=== PATIENT | male | born 1940 | race Caucasian/White ===

== ENCOUNTER 2021-07-17 05:17 | Day surgery (SDC) | payer MEDICARE, BC ==
[2021-07-06 15:53] LABS: BASOPHILS # (AUTO) 0.1 X10'3 (0-0.2); BASOPHILS % (AUTO) 0.8 % (0-1); EOSINOPHILS # (AUTO) 0.4 X10'3 (0-0.9); EOSINOPHILS % (AUTO) 5.3 % (0-6); LYMPHOCYTES # (AUTO) 1.4 X10'3 (1.1-4.8); LYMPHOCYTES % (AUTO) 21.5 % (21-51); MEAN CORPUSCULAR HEMOGLOBIN 30.9 PG (27.0-31.0); MEAN CORPUSCULAR HGB CONC 33.8 g/dL (33.0-36.5); MEAN CORPUSCULAR VOLUME 91.4 FL (78-98); MEAN PLATELET VOLUME 8.6 FL (7.4-10.4); MONOCYTES # (AUTO) 0.5 X10'3 (0-0.9); MONOCYTES % (AUTO) 8.1 % (2-12); NEUTROPHILS # (AUTO) 4.2 X10'3 (1.8-7.7); NEUTROPHILS % (AUTO) 64.3 % (42-75); PRE OP HEMATOCRIT 45.3 % (42.0-52.0); PRE OP HEMOGLOBIN 15.3 g/dL (14.0-17.9); PRE OP PLATELET COUNT 214 X10'3 (140-440); RED BLOOD COUNT 4.96 X10'6 (4.70-6.10); RED CELL DISTRIBUTION WIDTH 13.9 % (11.5-14.5)
[2021-07-06 15:55] LABS: CLARITY,URINE CLEAR (Clear); COLOR,URINE YELLOW (Yellow); GLUCOSE, URINE NEGATIVE (Neg); KETONES,URINE NEGATIVE (Neg); LEUKOCYTE ESTERASE ,URINE NEGATIVE (Neg); NITRITES, URINE NEGATIVE (Neg); OCCULT BLOOD,URINE NEGATIVE (Neg); PH,URINE 6.5 (4.8-8.0); PROTEIN,URINE NEGATIVE (Neg); UROBILINOGEN,URINE 0.2 E.U/dL (0.2-1.0)
[2021-07-06 16:06] LABS: ALBUMIN 3.5 G/DL (3.4-5.0); ALBUMIN/GLOBULIN RATIO 0.9 (1.1-1.5); ALKALINE PHOSPHATASE 74 IU/L (46-116); BLOOD UREA NITROGEN 25 MG/DL (7-18); BUN/CREATININE RATIO 22.9 (5.4-32.0); CALCIUM 8.9 MG/DL (8.5-10.1); CHLORIDE 108 MMOL/L (99-107); CREATININE 1.09 MG/DL (0.60-1.10); PRE OP ALT 22 U/L (30-65); PRE OP ANION GAP 7 (8-16); PRE OP AST 15 U/L (10-37); PRE OP BILIRUB, TOTAL 0.3 MG/DL (0.0-1.0); PRE OP GLUCOSE 118 MG/DL (70-104); PRE OP POTASSIUM 4.3 MMOL/L (3.4-5.1); PRE OP SODIUM 143 MMOL/L (135-145); TOTAL CARBON DIOXIDE 27.9 MMOL/L (24-32); TOTAL PROTEIN 7.2 G/DL (6.4-8.2); eGFR 65 ML/MIN
[2021-07-06 16:09] LABS: UA COLLECTION TYPE CLN CATCH MIDSTREAM
[2021-07-17] VITALS (13 sets, daily range): BP systolic 116–133; BP diastolic 57–78
[~2021-07-17] VITALS: Ht 182.9 cm; Wt 88.0 kg
[~2021-07-17 05:17] MED LIST: AMLO5TAB4 PO; ATOR10TA70 PO; CHOL200012 PO; LOSA50TA3 PO; MULT-1085 PO; OMEG-31 PO; TEST5GEL2 TP; TUMERIC PO; UBID200C37 PO; ringers solution, lacted 1,000 ML IV SCH
[2021-07-17] MEDS ORDERED: famotidine 20mg tablet PO ONE (05:30)
[2021-07-17] MEDS ORDERED: cefazolin/dext.iso 2gm/50ml IV ONE (05:30)
[2021-07-17] MEDS ORDERED: sevoflurane 250ml liquid IH ONE (06:00)
[2021-07-17] MEDS ORDERED: bacitracin 15gm ointment TP ONE (06:40)
[2021-07-17] MEDS ORDERED: midazolam 1 mg/ML 2ml injection ONE (07:11)
[2021-07-17] MEDS ORDERED: fentaNYL /PF 50mcg/ml 5ml ampule ONE (07:16)
[2021-07-17] MEDS ORDERED: ringers solution, lacted 1,000 ML IV SCH (08:25)
[2021-07-17] MEDS ORDERED: HYDROmorphone/PF 0.2 MG/ML SYRINGE IV PRN (08:25)
[2021-07-17] MEDS ORDERED: ROPIVAcaine 0.2%/PF PUMP/bolus 545 ML POPLITEAL SCH (08:25)
[2021-07-17] MEDS ORDERED: ROPIVAcaine 0.2% (10 MG/5 ML) BOLUS INJECTION POPLITEAL PRN (08:25)
[2021-07-17] MEDS ORDERED: morphine 2 MG/ML inj. syringe IV PRN (08:25)
[2021-07-17] MEDS ORDERED: ondansetron/PF 4mg/2ml inj IV PRN (08:25)
--- NOTE | 2021-07-17 09:25 | NUR ---
Received from OR via , accompanied by Anesthesiologist DR RUBIO and report given by Anesthesiolgist. PT PRESENTS WITH 18G LEFT WRIST, RIGHT LEG DRESSING DRY AND INTACT, VSS Addendum: 07/17/21 at 0938 by Dianne Sampson RN, RN Amended: Links added.
[2021-07-17] MEDS ORDERED: neostigmine methylsulfate 1 MG/ML 10ml vial ONE (10:08)
[2021-07-17] MEDS ORDERED: rocuronium 10mg/ml inj IV ONE (10:08)
[2021-07-17] MEDS ORDERED: glycopyrrolate 0.2mg/ml inj ONE (10:08)
[2021-07-17] MEDS ORDERED: dexamethasone sod phosphate 4mg/ml inj. ONE (10:08)
[2021-07-17] MEDS ORDERED: propofol inj 20 ML IV ONE (10:08)
[2021-07-17] MEDS ORDERED: ROPIVAcaine 0.5% (5mg/ml) 30ml vial ONE (10:08)
[2021-07-17] MEDS ORDERED: LIDOcaine 2% (20mg/ml) 5ml vial ONE (10:08)
[2021-07-17] MEDS ORDERED: ondansetron/PF 4mg/2ml inj ONE (10:08)
--- NOTE | 2021-07-17 11:36 | NUR ---
ALL DISCHARGE CRITERIA HAS BEEN MET. VSS, PAIN AT A TOLERABLE LEVEL, VOIDING AND ABLE TO SAFELY AMBULATE AND TRANSFER SELF. IV TAKEN OUT WITHOUT ANY COMPLICATIONS. ALL DISCHARGE INSTRUCTIONS COVERED WITH PATIENT AND ALL QUESTIONS ANSWERED. PATIENT TAKEN OUT VIA WHEELCHAIR TO PERSONAL VEHICLE WHERE FAMILY/FRIEND DROVE PATIENT HOME. Addendum: 07/17/21 at 1136 by Dianne Sampson RN, RN Amended: Links added.
== END 2021-07-17 11:25 | disposition home or self-care (01) ==
LOC: PAS 05:17
PROVIDERS: ATTEND Podiatrist Foot & Ankle Surgery
DX: M25.572 Pain in left ankle and joints of left foot (principal); M25.372 Other instability, left ankle; M65.872 Other synovitis and tenosynovitis, left ankle and foot; S96.812A Strain of other specified muscles and tendons at ankle and foot level, left foot, initial encounter; I10 Essential (primary) hypertension; K21.9 Gastro-esophageal reflux disease without esophagitis; G89.18 Other acute postprocedural pain; Z79.899 Other long term (current) drug therapy; Z95.0 Presence of cardiac pacemaker; Z98.890 Other specified postprocedural states; Z72.89 Other problems related to lifestyle; X58.XXXA Exposure to other specified factors, initial encounter; Y93.89 Activity, other specified; Y92.89 Other specified places as the place of occurrence of the external cause; Y99.8 Other external cause status
CPT/HCPCS: 27695; 28200; 29895; 36415; 64446; 64448; 76942; 80053; 81003; 82948; 85025; 87635; A6222; C1713; C9803; J0690; J1100; J2250; J2405; J2704; J2710; J2795; J3010; J3490; J7120; Z7506; Z7508; Z7512; A4618; A6449; A7000

== ENCOUNTER 2021-09-08 11:05 | Emergency (ER) | payer MEDICARE, BC ==
[~2021-09-08] VITALS: Ht 182.9 cm; Wt 87.7 kg
[~2021-09-08 11:05] MED LIST changes: -ringers solution, lacted 1,000 ML IV SCH
[2021-09-08 11:13] VITALS: BP 134/54
[2021-09-08] MEDS ORDERED: TETanus/Pertussis (Acell)/Diphther VAC/PF (Tdap-Adult) 0.5ml syringe IMVAC ONE (11:30)
[2021-09-08] MEDS ORDERED: HYDR-3965 PO (12:11)
[2021-09-08] MEDS ORDERED: CEPH250T PO (12:11)
== END 2021-09-08 12:43 | disposition home or self-care (01) ==
LOC: ER 11:06
DX: S61.211A Laceration without foreign body of left index finger without damage to nail, initial encounter (principal); I10 Essential (primary) hypertension; Z79.2 Long term (current) use of antibiotics; Z20.3 Contact with and (suspected) exposure to rabies; Z79.899 Other long term (current) drug therapy; X58.XXXA Exposure to other specified factors, initial encounter; Y93.89 Activity, other specified; Y92.89 Other specified places as the place of occurrence of the external cause; Y99.8 Other external cause status
CPT/HCPCS: 12002; 73140; 90471; 90715; 99283